=== PATIENT | male | born 1980 | race African-American/Black ===

== ENCOUNTER 2018-10-12 06:21 | Day surgery (SDC) | payer OTHER ==
[~2018-10-12] VITALS: Ht 185.4 cm; Wt 90.6 kg
[2018-10-12] VITALS (14 sets, daily range): BP systolic 123–149; BP diastolic 74–87; PULSE 62–94; RESP 12–24; Ht 185.4 cm; Wt 90.6 kg
[2018-10-12] MEDS ORDERED: CEFAZOLIN 2 GM/50 ML (PMX) 50 ML IVPB ONE (07:30)
[2018-10-12] MEDS ORDERED: SOD CHLORIDE 0.9% 1,000 ML IV ONE (07:30)
[2018-10-12] MEDS ORDERED: BUPIVACAINE 0.5%/EPI (SDV) 30 ML INJ ONE (08:03)
--- NOTE | 2018-10-12 09:08 | PREAC ---
Date/Time of Note Date/Time of Note DATE: 10/12/18 TIME: 09:07 Anesthesia Eval and Record Evaluation Time Pre-Procedure Interview DATE: 10/12/18 TIME: 09:07 Age 38 Sex male NPO: 8 hrs Preoperative diagnosis scalp mass Planned procedure scalp mass excision Past Medical History Past Medical History: Includes GI: Obesity Surgery & Anesthesia Issues No known issue Meds Anticoagulation: No Beta Alessandra within 24 hr: No Reason Beta Alessandra not given: Pt. not on B-Alessandra No Active Prescriptions or Reported Meds Current Medications Sodium Chloride 1,000 ml @ 75 mls/hr [id number] ONCE IV ; Start 10/12/18 at 07:30; Stop 10/12/18 at 20:49 Meds reviewed: Yes Allergies Coded Allergies: No Known Allergy (Unverified , 10/12/18) Allergies Reviewed: Yes Labs/Studies Labs Reviewed: Reviewed by anesthesiologist Result Diagram: 10/12/18 0700 10/12/18 0700 Laboratory Tests 10/12/18 07:00 test: N/A Pre-procedure Exam Last vitals Vital Signs Date Temp Pulse Resp B/P (MAP) Pulse Ox O2 O2 Flow FiO2 Time Delivery Rate 10/12/18 98.4 62 16 123/81 99 Room Air 07:10 (95) Airway: Adequate mouth opening, Adequate thyromental dist Mallampati: Mallampati II Teeth: Normal Lung: Normal Heart: Normal ASA Physical Status ASA physical status: 2 Emergency: None Planned Anesthetic General/MAC: ETT Pre-operative Attestations Prior to commencing anesthesia and surgery, the patient was re-evaluated, there was verification of: *The patient's identity *The results of appropriate recent lab work and preoperative vital signs *The above evaluation not changing prior to induction *Anesthetic plan, risk benefits, alternative and complications discussed with patient/family; questions answered; patient/family understands, accepts and wishes to proceed. ILANA BUCHANAN Oct 12, 2018 09:08
[2018-10-12] MEDS ORDERED: FENTAnyl 50 MCG/ML VIAL ONE (09:20)
[2018-10-12] MEDS ORDERED: DIPHENHYDRAMINE 50 MG INJ IV PRN (09:30)
[2018-10-12] MEDS ORDERED: ONDANSETRON 4 MG INJ IV PRN (09:30)
[2018-10-12] MEDS ORDERED: ALBUTEROL 0.083% (NEB) 2.5 MG/3 ML AMP HHN PRN (09:30)
[2018-10-12] MEDS ORDERED: FENTAnyl 50 MCG/ML VIAL IV PRN ×2 (09:30)
[2018-10-12] MEDS ORDERED: MEPERIDINE 25 MG INJ IV PRN (09:30)
[2018-10-12] MEDS ORDERED: HYDROmorphONE 1 MG/5 ML IV SYRINGE IV PRN ×3 (09:30)
[2018-10-12] MEDS ORDERED: METOCLOPRAMIDE 10 MG INJ IV PRN (09:30)
[2018-10-12] MEDS ORDERED: CEFAZOLIN 1 GM INJ ONE (09:47)
[2018-10-12] MEDS ORDERED: PROPOFOL 20 ML ONE (09:47)
[2018-10-12] MEDS ORDERED: ROCURONIUM 50 MG INJ ONE (09:47)
[2018-10-12] MEDS ORDERED: SUCCINYLCHOLINE CHLORIDE 100 MG/5 ML SYG IV ONE (09:47)
[2018-10-12] MEDS ORDERED: LIDOCAINE 100 MG SYRINGE ONE (09:47)
[2018-10-12] MEDS ORDERED: SUGAMMADEX SODIUM 200 MG/2 ML VIAL IV ONE (09:47)
--- NOTE | 2018-10-12 10:07 | SIPON ---
Date/Time of Note Date/Time of Note DATE: 10/12/18 TIME: 10:05 Operative Report Preoperative Diagnosis Cystic mass posterior scalp Postoperative Diagnosis Same Operation/Procedure Performed Excision of cystic mass posterior scalp Surgeon see signature line wardrobe assistant Dr Hogan Anesthesia: general Estimated blood loss: 10 - 50 ml's Transfusion Required none Specimen Posterior scalp mass Grafts/Implants none Complications none ARPITA ADRIAN MD Oct 12, 2018 10:07
--- NOTE | 2018-10-12 11:06 | PAC ---
Date/Time of Note Date/Time of Note DATE: 10/12/18 TIME: 11:05 Post-Anesthesia Notes Post-Anesthesia Note Last documented vital signs Vital Signs Date Temp Pulse Resp B/P (MAP) Pulse Ox O2 O2 Flow FiO2 Time Delivery Rate 10/12/18 82 19 135/82 100 Room Air 10:54 (99) 10/12/18 98.7 6.0 10:24 Activity: WNL Respiratory function: WNL Cardiovascular function: WNL Mental status: Baseline Pain reasonably controlled: Yes Hydration appropriate: Yes Nausea/Vomiting absent: Yes ILANA BUCHANAN Oct 12, 2018 11:06
--- NOTE | 2018-10-12 11:32 | OPR ---
DATE OF OPERATION: 10/12/2018 PREOPERATIVE DIAGNOSIS: Midline posterior scalp mass. POSTOPERATIVE DIAGNOSIS: Midline posterior scalp mass. PROCEDURE: Excision of midline posterior scalp mass. ANESTHESIA: General. ANESTHESIOLOGIST: Mainor Padilla MD SURGEON: William Wheeler MD [employer]: Oliverio Hogan MD INDICATIONS FOR PROCEDURE: The patient is a 38-year-old male who has had [address] tucker on infected cystic mass on the posterior aspect in the midline of his scalp. He was seen in surgical consultation and requested definitive excision of the cystic mass. He consented and was jacqueline eduled for surgery. DESCRIPTION OF PROCEDURE: The patient was brought to the operating theater, placed under general ane sthesia. He was then placed into the prone position. The area over the palpable mass was shaved, pr epped and draped in the usual sterile fashion. A longitudinal incision for a length of approximately 6 to 8 cm was made directly over the mass and in the subcutaneous space a cystic mass with significa nt amount of debris was identified. It was widely dissected from the surrounding tissue, removed and sent for permanent pathologic analysis. Bleeding was then controlled with cautery and the area was then copiously irrigated with hydrogen peroxide and Betadine. The area was then also widely infiltra stefan with 0.5% Marcaine local anesthetic with epinephrine and then the skin was reapproximated with mu ltiple 2-0 nylon sutures in vertical mattress fashion. The patient tolerated procedure well. The es timated blood loss was approximately 20 mL. There were no complications and the patient was transpor stefan in stable condition to the recovery room. Dictated By: WILLIAM WHEELER MD TL/NTS Conf#: [id number] DID#: [id number] CC: OLIVERIO HOGAN MD;*EndCC*
== END 2018-10-12 11:51 | disposition home or self-care (01) ==
LOC: EDSEX 06:21 → SDS 06:21
PROVIDERS: ATTEND Surgery Surgical Oncology
DX: L72.0 Epidermal cyst (principal); L90.5 Scar conditions and fibrosis of skin
CPT/HCPCS: 11422; 80053; 85025; 85610; 85730; 88307; J0690; J2001; J3010; Z7512; Z7610